=== PATIENT | male | born 1990 | race Caucasian/White ===

== ENCOUNTER 2022-08-30 19:55 | Emergency (ER) | payer SELFPAY ==
[~2022-08-30] VITALS: Ht 188 cm; Wt 106.6 kg
[2022-08-30 20:11] VITALS: BP 141/71
[2022-08-30] MEDS ORDERED: XYLOCAINE 2%-EPI 1:100,000 ONE (20:18)
[2022-08-30 20:26] VITALS: BP 141/71
[2022-08-30] MEDS ORDERED: TRIPLE ANTIBIOTIC OINTMENT TP ONE (20:33)
[2022-08-30] MEDS ORDERED: BOOSTRIX IM ONE ×2 (20:37→21:00)
--- NOTE | 2022-08-30 20:40 | ER.PDOC ---
General Chief Complaint: Extremities Stated Complaint: RIGHT KNEE INJURY Time seen by MD: 20:36 Source: patient Exam Limitations: no limitations History of Present Illness Initial Comments Laceration of right knee with an axe this evening. Onset: just prior to arrival Where: home Context: laceration Severity: moderate Past Medical History Medical History: no pertinent history Surgical History: no surgical history Family History Significant Family History: no pertinent family hx Social History Smoking: non-smoker Alcohol Use: none Drug Use: none Review of Systems Constitutional: no symptoms reported EENTM: no symptoms reported Respiratory: no symptoms reported Cardiovascular: no symptoms reported Musculoskeletal: see HPI All Other Systems: Reviewed and Negative Physical Exam General Appearance: Alert, No Apparent Distress Foot: nml inspection, non-tender, nml color/temp, skin intact Ankle: nml inspection, non-tender, nml ROM, no joint swelling, skin intact Knee: see diagram Thigh/Hip: nml inspection 1 - Lac Gait: normal Neuro/Vasc/Tendon: sensation nml, motor nml, no vascular compromise, tendon function nml Skin: warm/dry Head/ENT: nml inspection, pharynx nml Neck/Back: nml inspection, non-tender Abdomen: non-tender, pelvis stable ED LACERATION WOUND REPAIR # of Wounds/Lacerations Presen: 1 Wound Location & Length (Requi: Right knee Wound Length (cm): 4 Wound cleaned: betadine Anesthesia type: local Anesthesia: Lidocaine w/ Epi Volume Anesthetic (ccs): 10 Wound's Depth, Shape: linear Irrigated w/ Saline (ccs): 100 Wound Repaired With: sutures Suture Size/Type: 4:0, ethilon Suture Style: interupted Number of Sutures: 4 Results/Orders Results/Orders Orders - IRINA GOODRICH MD Lidocaine Hcl/Epinephrine (Xylocaine 2%- (08/30/22 20:18) Neomycin/Bacitracin/Polymyxinb (Triple A (08/30/22 20:33) Diph,Pertuss(Acell),Tet Vac/Pf (Boostrix (08/30/22 21:00) Vital Signs Date Time Temp Pulse Resp B/P (MAP) Pulse Ox O2 Delivery O2 Flow Rate FiO2 08/30/22 20:26 98.4 71 16 141/71 (94) 98 Room Air* 0 21 10/8/22 20:11 98.4 71 16 98 Progress Progress Patient received a tetanus shot. He refused x-rays of right knee to rule out a fracture. ER DEPART Departure Time of Disposition: 20:38 Disposition: 01 HOME / SELF CARE / HOMELESS Impression: Primary Impression: Laceration of knee, right Condition: Improved Referrals: JULIETTE GARCIA-C (PCP) PRIMARY CARE PROVIDER Additional Instructions: Keflex Ibuprofen Apply Neosporin daily Remove sutures in 8 days either PCP or ED Return to ED sooner if any concerns Duration or Time Spent with Pa: 10 min Problem Qualifiers Primary Impression: Laceration of knee, right Encounter type: initial encounter Qualified Codes: S81.011A - Laceration without foreign body, right knee, initial encounter IRINA GOODRICH MD Aug 30, 2022 20:40
== END 2022-08-30 20:45 | disposition home or self-care (01) ==
LOC: ER 19:55
DX: S81.011A Laceration without foreign body, right knee, initial encounter (principal); W45.8XXA Other foreign body or object entering through skin, initial encounter; Y93.89 Activity, other specified; Y92.009 Unspecified place in unspecified non-institutional (private) residence as the place of occurrence of the external cause; Y99.8 Other external cause status
CPT/HCPCS: 12002; 90471; 90715; 99283